=== PATIENT | female | born 1945 | race Caucasian/White ===

== ENCOUNTER 2017-04-18 10:26 | Emergency (ER) | payer MEDICARE, OTHER ==
[~2017-04-18] VITALS: Ht 154.9 cm; Wt 70.9 kg
[2017-04-18] MEDS ORDERED: 0.9% Sodium Chloride 1,000 ML IV ONE (10:33)
--- NOTE | 2017-04-18 10:33 | ED.REPORT ---
HPI-Neurologic Deficit Date of Service Apr 18, 2017 ED Provider: Dr. Sharma Pt is a generally healthy 71 y/o female presenting to the ED via EMS due to now resolved stroke-like symptoms onset prior to arrival. The patient states she was heading into a store and "felt like something was stuck to the bottom of her right shoe" which she was unable to relieve after wiping her shoe. She then developed vague RUE and RLE heaviness along with mild facial numbness and vague speech changes. She called EMS who reports that she was experiencing obvious R- sided deficits which improved throughout the transfer to the ED. At time of arrival she states she is basically feeling normal at this time but is unable to describe what may be abnormal. The patient's only medical history is arthritis and she takes no medications. She is a poor historian. Nursing Notes Stated Complaint: CVA Nursing Notes Reviewed: Yes Allergies: Coded Allergies: coffee (Coffea arabica) (Verified Adverse Reaction, Severe, anaphylactic, 04/18/17) nitrous oxide (Verified Adverse Reaction, Severe, anaphylatic, 04/18/17) Scheduled Aspirin (Aspirin) 325 Mg Tablet 325 MG PO DAILY Atorvastatin (Lipitor) 40 Mg Tablet 40 MG PO DAILY Lisinopril (Lisinopril) 5 Mg Tablet 5 MG PO DAILY General Time Seen by Provider: 10:43 Chief Complaint Other (R-sided deficits) Hx Obtained From: Patient, EMS Arrived By: Ambulance Sudden in Onset?: Yes Onset Occurred: Just prior to arrival Symptom Duration: Since onset Progression Since Onset: Resolved Severity: Current: No pain currently Severity: Maximum: No pain Recent Healthcare: No recent hospitalization Risk Factors NIH Stroke Scale Level of Consciousness: Alert and responsive (0) Ask Month & Age: Both questions right (0) Open/Close Eyes/Hand Testing Engineer: Performs both tasks (0) Horizontal EO Movements: None (0) Visual Val[place]: No visual loss (0) Facial Palsy: Normal symmetry (0) Right Arm Motor Drift (10s): No drift 10 sec (0) Left Arm Motor Drift (10s): No drift 10 sec (0) Right Leg Motor Drift (5s): No drift 5 sec (0) Left Leg Motor Drift (5s): No drift 5 sec (0) Limb Ataxia FNF/Heel-Alston: No ataxia (0) Sensation (Arms/Legs/Face): No sensory loss (0) Language Aphasia: No aphasia, normal (0) Dysarthria: No dysarthria, normal (0) Extinction/Inattention: No exctinct/inattent (0) NIHSS Score: 0 Time NIHSS Performed: 10:56 Date NIHSS Performed: Apr 18, 2017 Past Medical History Past Medical History Arthritis Past Surgical History Tonsillectomy Eye Hysterectomy Smoking History Unknown if Ever Smoker Social History Alcohol Use: "Social" Drug Use: Denies drug use Ambulatory Status Independent Review of Systems Neurologic: Reports: Focal weakness, Numbness, Slurred speech, Denies: Bladder dysfunction, Bowel dysfunction, Change LOC, Confusion, Headache, Seizure, Syncope Complete sys rev & neg: except as marked. Physical Exam Initial Vital Signs Vital Signs (First) Date Time Temp Pulse Resp B/P Pulse Ox O2 Delivery O2 Flow Rate FiO2 04/18/17 10:54 36.6 66 12 151/73 99 Room Air Initial VS: Reviewed, Vital signs normal ENT: Mucous membranes moist, Conjunctiva normal, No scleral icterus Neck: Supple, Full range of motion Abdomen / GI: Soft, Non-tender, No guarding, No rebound, No distention Extremities: Vascular intact, Neuro intact, No swelling, No tenderness Skin: Warm, Dry, No cyanosis Psychiatric: Mood/affect normal, Behavior normal, Normal thought content General/Constitutional: Awake, Alert, No acute distress, Well appearing, Cooperative, Not toxic appearing Head / Eyes: Atraumatic, Normocephalic, PERRL, EOMI Respiratory / Chest: Breath sounds NL, Breath sounds = bilat, No respiratory distress, No rales, No rhonchi, No wheezing Cardiovascular: Heart rate NL, Regular rhythm, Heart sounds NL, No gallop, No murmurs, No rubs, Cap refill not delayed, Peripheral circulation NL, Pulses = bilaterally Neurologic: Oriented X3, Speech NL, No motor deficits, No sensory deficits, CN II - XII intact, Cerebellar NL, Memory NL NIH stroke scale = 0 Interpretation & Diagnostics Lab Results Interpretation Result Diagram: 04/18/17 1050 04/18/17 1050 Test 04/18/17 10:33 04/18/17 10:50 Prothrombin Time 9.8sec (8.1-12.5) Prothromb Time International Ratio 0.92ratio Activated Partial Thromboplast Time 28.5sec (22.8-33.0) White Blood Count 7.6th/mm3 (3.8-10.1) Red Blood Count 4.30mil/mm3 (3.90-5.20) Hemoglobin 14.4g/dL (12.0-15.6) Hematocrit 42.9% (35.0-46.0) Mean Corpuscular Volume 99.8fL (81-100) Mean Corpuscular Hemoglobin 33.5pg (27.0-35.0) Mean Corpuscular Hemoglobin Concent 33.6% (32.0-37.0) Red Cell Distribution Width 12.9% (12.3-15.4) Platelet Count 172bil/L (150-400) Neutrophils (%) (Auto) 58.3% (40-74) Lymphocytes (%) (Auto) 29.2% (14-46) Monocytes (%) (Auto) 10.2% (4-12) Eosinophils (%) (Auto) 1.5% (0-5) Basophils (%) (Auto) 0.5% (0-3) Sodium Level 140mEq/L (134-144) Potassium Level 4.0mEq/L (3.5-5.2) Chloride Level 101mEq/L (97-108) Carbon Dioxide Level 23mmol/L (18-29) Blood Urea Nitrogen 18mg/dL (8-27) Creatinine 1.11mg/dL (0.57-1.00) Estimat Glomerular Filtration Rate 69mL/min (>59) Glucose Level 115mg/dL (60-99) Calcium Level 9.1mg/dL (8.5-10.1) Total Bilirubin 0.3mg/dL (0.0-1.2) Aspartate Amino Transf (AST/SGOT) 18U/L (0-50) Alanine Aminotransferase (ALT/SGPT) 11U/L (0-32) Alkaline Phosphatase 70U/L (25-165) Troponin T < 0.010ug/L (0.0-0.011) Total Protein 6.6g/dL (6.4-8.4) Albumin 3.9g/dL (3.4-5.0) Triglycerides Level 167mg/dL (0-149) Cholesterol Level 227mg/dL (100-199) LDL Cholesterol, Calculated 150.600mg/dL (0-99) VLDL Cholesterol 33.400mg/dL HDL Cholesterol 43mg/dL (>39) Cholesterol/HDL Ratio 5.28 (0.0-4.4) Hold Akers Top Tube Received (Received) ECG Interpretation ECG Interpretation: Sinus rhythm rate [address] changes Time: 11:05 Interpreted by: ED physician Normal ECG Interpretation: No acute ischemic changes X-Ray Chest Interpretation Chest Xray Interpretation: IMPRESSION: 1. No acute cardiopulmonary disease. Dictated by: Don Cabrera M.D. on 04/18/2017 at 11:36 Approved by: Don Cabrera M.D. on 04/18/2017 at 11:39 View: Portable, 1 view Interpretation / Wet Read by: Interpret - Radiologist CT Head Interpretation IMPRESSION: 1. No acute intracranial process. 2. Moderate atrophy and chronic microvascular ischemic changes. The above findings were discussed with Dr. Juan Sharma 04/18/17 at 10:57 PM This study fulfills neurological imaging criteria for inclusion or exclusion of acute stroke therapies based on available published neurological guidelines. Dictated by: Gabi Smart M.D. on 04/18/2017 at 10:57 Approved by: Gabi Smart M.D. on 04/18/2017 at 11:00 Study: Head CT no contrast Interpretation / Wet Read by: Interpret - Radiologist Re-Eval/Medical Decision Med Decision/Clinical Course Patient care was initiated prior to arrival when emergency medical personnel notified us of a high risk neurologic condition arriving to the ER which may be a candidate for TPA. Addition, nursing, and ancillary laboratory and radiographic staff were at the bedside awaiting patient arrival. She was immediately brought to the emergency department and evaluated from the paramedics [facility]. Airway was intact and she had a normal glucose as well as a reasonable blood pressure. She was sent right away to CT scan. Upon return from CT, NIH stroke scale was performed and found to be 0. Symptoms today represent a TIA. As the symptoms have completely resolved, no TPA was given. Patient is initially amenable to admission and further diagnostic evaluation. Hospitalist was contacted and that is assigned. Hospitalist did take brief report however the patient never went to the floor for full evaluation. Patient ultimately refused hospitalization. She is of clear mind and sound decisional capacity to do so. She was initially preoccupied with insurance costs. For this reason case management was contacted who agreed to come talk to the patient discussed the billing plan. After this was performed the patient was concerned about her elderly and his ability to care for himself. Social work was consulted for this reason and agreed to help coordinate social care for the . I spoke with the patient on multiple occasions, trying to understand the reasons why she was resistant to being hospitalized and having further evaluation. We discussed at length the risks of leaving the hospital which included but are not limited to stroke, , coma, significant physical limitations. Patient's arrived at the hospital and the patient is continually refusing admission. We talked at length about risk factors for stroke and she will be prescribed low-dose aspirin, atorvastatin, lisinopril. She has no medical physician and for that reason a physician was looked up and she is given the name of the clinic in her area with which to follow-up. extensive discussion about the seriousness of her diagnosis and the need for immediate return to the closest emergency department if symptoms return are given. Re-Evaluation/Progress #1: Time of Eval: 11:03 )( Re-Eval Neurologic Exam: Pt is back to baseline Re-Evaluation/Progress Note: Pt rechecked. Informed pt of need for admission. Pt understands and agrees with plan for admission. All questions addressed. Re-Evaluation/Progress #2: Time of Eval: 13:08 Re-Evaluation/Progress Note: She is now wanting to leave because of the potential cost of admission and also because her demented is home alone. She is willing to speak to a medical billing representative prior to leaving. Re-Evaluation/Progress #3: Time of Eval: 14:34 Re-Evaluation/Progress Note: Adamantly refuses admission. Understands risks of leaving. Leaving AMA. F/U instructions and RTER warnings given. All questions addressed. Consultation : Referral / Consult Name: Salty Barker MD Consulted With: Hospitalist Call Returned at: 12:42 [employer] Cutter Hand: Will see patient, Agrees with eval, Agrees with plan, Accepts admit Counseled Regarding: Diagnosis, Lab results, Need for follow-up, When/why to return to ED Discharge & Departure Impression: Primary Impression: Transient ischemic attack Transient cerebral ischemia type: unspecified Qualified Code: G45.9 - Transient cerebral ischemic attack, unspecified Disposition: AGAINST MEDICAL ADVICE Discharge Condition All VS Reviewed: Yes Condition: Stable Patient Instructions: Transient Ischemic Attack (ED) Additional Instructions: Today you had a transient ischemic attack. I wish that you could stay with us in order to better find out why this happened and prevent it from happening again. You should begin taking aspirin, simvastatin, and lisinopril to event of further stroke and treat your blood pressure and cholesterol. Call a primary care doctor for close follow-up in the next few days and further workup and evaluation as to the cause of your TIA. Return to the closest ER immediately after the onset of any recurrent signs of stroke or TIA, or any other concerns. We are always happy to see you at any point if you wish to return to the ER. Referrals: Phani Matias MD (Family) Crit Care Except Billable Proc Time Spent: 30-74 minutes Services Performed: Patient management by me, Time spent at bedside, Reviewing test results, Reviewing imaging, Discussing patient care, Documentation in record Critical Care Notes: 32 minutes for consideration of tPA Scribe Attestation Portions of this note were transcribed by Sunil Gutierrez. I, Dr. Sharma personally performed the history, physical exam and medical decision-making; I reviewed and confirmed the accuracy of the information in the transcribed note. copies to: Phani Matias MD, Timothy S DO Apr 18, 2017 10:33 SUNIL GUTIERREZ Apr 18, 2017 11:00
[2017-04-18 10:54] VITALS: BP 151/73; PULSE 66; RESP 12; O2SAT 99
[2017-04-18 11:00] LABS: BASOPHILS % (AUTO) 0.5 % (0-3); EOSINOPHILS % (AUTO) 1.5 % (0-5); MONOCYTES % (AUTO) 10.2 % (4-12); Mean Corpuscular Hemoglobin 33.5 pg (27.0-35.0); Mean Corpuscular Volume 99.8 fL (81-100); NEUTROPHILS % (AUTO) 58.3 % (40-74); Platelet Count 172 bil/L (150-400)
--- NOTE | 2017-04-18 11:01 | DRSVH ---
PROCEDURE: CT BRAIN TPA INDICATIONS: Stroke TECHNIQUE: Noncontrast 4.5 mm thick angled axial sections acquired from the foramen magnum to the vertex, with c oronal reformats. COMPARISON: None. FINDINGS: Image quality: Excellent. CSF spaces: Basal cisterns are patent. No extra-axial fluid collections. The ventricles are symmet leydi in size and shape. Brain: No intracranial bleeds or masses. There is cerebral volume loss for age, with resultant vent ricular and sulcal prominence. There are periventricular and deep white matter chronic small vessel ischemic changes. There is intracranial internal carotid artery atherosclerosis. Skull and face: Calvarium and visualized facial bones appear intact, without suspicious lesions. Sinuses: Visualized sinuses and mastoids are clear. IMPRESSION: 1. No acute intracranial process. 2. Moderate atrophy and chronic microvascular ischemic changes. The above findings were discussed with Dr. Juan Sharma 04/18/17 at 10:57 PM This study fulfills neurological imaging criteria for inclusion or exclusion of acute stroke therapie s based on available published neurological guidelines. Dictated by: Gabi Smart M.D. on 04/18/2017 at 10:57 Approved by: Gabi Smart M.D. on 04/18/2017 at 11:00
--- NOTE | 2017-04-18 11:15 | NUR ---
spiritual care: code stroke introductory visit. pt conversing and asked for help locating her and friend--she believes they are either on way or in hospital. unable to find family, available to follow as needed.
[2017-04-18 11:17] LABS: INR 0.92 ratio
[2017-04-18 11:32] LABS: TROPONIN T < 0.010 ug/L (0.0-0.011)
--- NOTE | 2017-04-18 11:41 | DRSVH ---
PROCEDURE: X-RAY CHEST ONE VIEW, PORTABLE ([id number]) INDICATIONS: right sided deficits TECHNIQUE: One view of the chest was acquired. COMPARISON: None. FINDINGS: Surgical changes and devices: None. Lungs and pleura: No pleural effusions or pneumothorax. Lungs are clear. Mediastinum: Mediastinal contours appear normal. Heart size is normal. Bones and chest wall: No suspicious bony lesions. Overlying soft tissues appear unremarkable. IMPRESSION: 1. No acute cardiopulmonary disease. Dictated by: Don Cabrera M.D. on 04/18/2017 at 11:36 Approved by: Don Cabrera M.D. on 04/18/2017 at 11:39
[2017-04-18] MEDS ORDERED: Labetalol 5 mg/mL 20 mL Inj IVPUSH PRN (12:45)
[2017-04-18] MEDS ORDERED: Ondansetron 2 mg/mL 2 mL Inj IVPUSH PRN ×2 (12:45)
[2017-04-18] MEDS ORDERED: Alum-Mag Hydrox-Simeth 30 mL Suspension PO PRN ×2 (12:45)
[2017-04-18] MEDS ORDERED: Polyethylene Glycol (PEG) 17 Gm Powder PO PRN (12:45)
--- NOTE | 2017-04-18 13:20 | PCM.HPMED ---
Subjective Date of Service Apr 18, 2017 Primary Provider: Admitting Physician: Salty Barker MD Primary Care Physician: Joy Attending Physician: Salty Barker MD History of Present Illness: History from ED, patient: A healthy 71 y/o female presenting to the ED via EMS due to now resolved stroke- like symptoms onset prior to arrival. The patient states she was heading into a store and "felt like something was stuck to the bottom of her right shoe" which she was unable to relieve after wiping her shoe. She then developed vague RUE and RLE heaviness along with mild facial numbness and vague speech changes. She called EMS who reports that she was experiencing obvious R-sided deficits which improved throughout the transfer to the ED. At time of arrival she states she is basically feeling normal at this time but is unable to describe what may be abnormal. The patient's only medical history is arthritis and she takes no medications. She added that she is not sure if she wants to stay in the hospital as she will be covered by medicare only for 80% of the bill. She denies any symptoms at this point. Allergies Coded Allergies: coffee (Coffea arabica) (Verified Adverse Reaction, Severe, anaphylactic, 04/18/17) nitrous oxide (Verified Adverse Reaction, Severe, anaphylatic, 04/18/17) Constitutional: No: Chills, Fever, Malaise, Other, Sweats, Weakness Eyes: No: Conjunctivae inflammation, Eyelid inflammation, Other, Pain, Redness , Vision change ENT: No: Ear discharge, Ear pain, Mouth pain, Mouth swelling, Nose congestion, Nose discharge, Nose pain, Other, Throat pain, Throat swelling Respiratory: No: Cough, Dry, Hemoptysis, Other, Pleuritic Pain, SOB with excertion, Shortness of breath, Sputum, Wheezing, Wheezing Cardiovascular: No: Chest Pain, Edema, Lt Headedness, Orthopnea, Other, Palpitations, Paroxysmal Noc. Dyspnea Gastrointestinal: No: Abdominal Pain, Constipation, Diarrhea, Hematochezia, Melena, Nausea, Other, Vomiting Genitourinary: Negative for: Dysuria, Frequency, Hematuria, Incontinence, Other , Retention Musculoskeletal: No: arm pain, back pain, foot pain, hand pain, leg pain, neck pain, other, shoulder pain Skin: No: Bruising, Jaundice, Lesions, Other, Rash Neurological: : Other (as per HPI) Home Meds Active Scripts Atorvastatin (Lipitor)40 Mg [id number] Mg PO DAILY #30 TABLET Ref 0 Prov:Juan Sharma DO 04/18/17 Lisinopril 5 Mg Tablet5 Mg PO DAILY #30 TABLET Ref 0 Prov:Juan Sharma DO 04/18/17 Aspirin 325 Mg [id number] Mg PO DAILY #90 TAB Prov:Juan Sharma DO 04/18/17 PMH Arthritis Surgical History Tonsillectomy Eye Hysterectomy Social History Hx Alcohol Use: Yes Alcoholic Drinks Per Day: occasionally Hx Substance Use: No Smoking Status: Unknown if Ever Smoker Exam Vital Signs Vital Sign - Last Date Time Temp Pulse Resp B/P Pulse Ox O2 Delivery O2 Flow Rate FiO2 04/18/17 10:54 36.6 66 12 151/73 99 Room Air Exam Complete physical could not be performed as patient wanted to decide before she gets admitted or not. No neurological deficits were observed. Lab and Diagnostics Result Diagram: 04/18/17 1050 04/18/17 1050 Assessment & Plan > TIA - CT head negative for any acute changes - will order Stroke protocol set : MRI Head, CTA brain and neck, echo - continue aspirin - PT/OT/ST > Arthritis - chronic , stable Discussed with patient the risks of leaving AMA. She said she understands it, and would like to think about it. Patient left AMA from ED. Resuscitation Status: CPR: Attempt Resuscitation Time spent 35 mins Salty Barker MD Apr 18, 2017 13:20
[2017-04-18] MEDS ORDERED: LISI-571 PO (14:31)
[2017-04-18] MEDS ORDERED: ASPI325T32 PO (14:31)
[2017-04-18] MEDS ORDERED: LIP40 PO (14:31)
[2017-04-18 15:09] VITALS: BP 152/77; PULSE 60; RESP 20; O2SAT 98
== END 2017-04-18 15:10 | disposition left against medical advice (07) ==
LOC: EDUNIT# 10:26 → EDBD 10:26 → SED 10:26 → MPC 12:44 → UNDOADMOB 12:44 → SED 15:10
DX: G45.9 Transient cerebral ischemic attack, unspecified (principal); Z79.82 Long term (current) use of aspirin; Z53.29 Procedure and treatment not carried out because of patient's decision for other reasons
CPT/HCPCS: 36415; 70450; 71010; 80053; 80061; 83036; 84484; 85025; 85610; 85730; 92610; 93005; 96360; 99291; J7030